=== PATIENT | female | born 1950 | race Caucasian/White ===

== ENCOUNTER 2019-07-22 09:30 | Day surgery (SDC) | payer OTHER, MEDICARE, MEDICAID ==
[~2019-07-22 09:30] MED LIST: Cefuroxime 10 MG/ML SYRINGE EYELF SCH; Lidocaine 1% PF 2 ML SDV INJECT SCH; Pilocarpine 4% Ophth Soln 15 ML Bot EYELF SCH
[2019-07-22] MEDS: Polymyxin B/Trimethoprim 10 ML Bottle EYELF SCH ×3 (10:19→12:08)
[2019-07-22] MEDS: Brimonidine 0.2% Ophth Soln 5 ML Bottle EYELF SCH ×3 (10:25→12:08)
[2019-07-22] MEDS: Phenylephrine 2.5% Ophth Soln 2 ML Bot EYELF SCH ×5 (10:30→11:51)
[2019-07-22] MEDS: Tropicamide 1% Ophth Soln 15 ML Bottle EYELF SCH ×4 (10:33→11:15)
--- NOTE | 2019-07-22 10:35 | PCM.PREANE ---
Preanesthetic Assessment - Anesthesia/Transfusion/Family Hx Anesthesia History: No Prior Anesthesia Family History of Anesthesia Reaction: No Transfusion History: No Prior Transfusion(s) - Review of Systems General: No Symptoms Pulmonary: No Symptoms Cardiovascular: Other (HTN) Gastrointestinal: No Symptoms Neurological: No Symptoms Other: Reports: Anxiety - Physical Assessment NPO Status Date: 07/21/19 NPO Status Time: 18:00 Vital Signs: Last Vital Signs Temp 36.5 C 07/22/19 10:10 Pulse 76 07/22/19 10:10 Resp 16 07/22/19 10:10 BP 150/77 H 07/22/19 10:10 Pulse Ox 98 07/22/19 10:10 Height: 1.57 m Weight: 58.513 kg ASA Class: 2 Mental Status: Alert & Oriented x3 Airway Class: Mallampati = 2 Dentition: Reports: Dentures, Edentulous Thyro-Mental Finger Breadths: 3 Mouth Opening Finger Breadths: 3 ROM/Head Extension: Full Lungs: Clear to Auscultation, Normal Respiratory Effort Cardiovascular: Regular Rate, Regular Rhythm - Allergies Allergies/Adverse Reactions: Allergies Allergy/AdvReac Type Severity Reaction Status Date / Time penicillin G AdvReac bruising Verified 07/21/19 14:06 - Blood Blood Available: No Product(s) Available: None - Anesthesia Plan Pre-Op Medication Ordered: None - Acknowledgements Anesthesia Type Planned: MAC Pt an Appropriate Candidate for the Planned Anesthesia: Yes Alternatives and Risks of Anesthesia Discussed w Pt/Guardian: Yes Pt/Guardian Understands and Agrees with Anesthesia Plan: Yes PreAnesthesia Questionnaire - HOME MEDS Home Medications: Home Meds . [Unable to Verify Home Med List] 07/21/19 [History] - CURRENT (IN HOUSE) MEDS Current Meds: Current Medications Brimonidine Tartrate (Alphagan 0.2% Ophth Soln) 0 ml EYELF ASDIRECTED FABY Stop: 07/22/19 23:00 Last Admin: 07/22/19 10:25 Dose: 1 drop Cefuroxime Sodium (Zinacef) 0 mg EYELF ASDIRECTED FABY Stop: 07/22/19 23:00 Lidocaine HCl (Xylocaine-Mpf 1%) 1 ml INJECT ASDIRECTED FABY Stop: 07/22/19 23:00 Phenylephrine HCl (Alex-Synephrine 2.5% Ophth Soln) 0 ml EYELF ASDIRECTED FABY Stop: 07/22/19 23:00 Pilocarpine HCl (Pilocar 4% Ophth Soln) 0 ml EYELF ASDIRECTED FABY Stop: 07/22/19 23:00 Polymyxin/Trimethoprim Sulfate (Polytrim Ophth Soln) 0 ml EYELF ASDIRECTED FABY Stop: 07/22/19 23:00 Last Admin: 07/22/19 10:19 Dose: 1 drop Tetracaine HCl (Tetracaine 0.5% Steri-Unit Giuliana) 0 ml EYELF ASDIRECTED FABY Stop: 07/22/19 23:00 Tropicamide (Mydriacyl 1% Ophth Soln) 0 ml EYELF ASDIRECTED FABY Stop: 07/22/19 23:00
[2019-07-22] MEDS: Tetracaine HCl/PF 0.5% 4 ML Bottle EYELF SCH ×2 (11:36→11:57)
--- NOTE | 2019-07-22 12:13 | PCM48HPAN ---
Post Anesthesia Note - EVALUATION WITHIN 48HRS OF ANESTHETIC Vital Signs in Normal Range: Yes Patient Participated in Evaluation: Yes Respiratory Function Stable: Yes Airway Patent: Yes Cardiovascular Function Stable: Yes Hydration Status Stable: Yes Pain Control Satisfactory: Yes Nausea and Vomiting Control Satisfactory: Yes Mental Status Recovered: Yes Vital Signs: Last Vital Signs Temp 36.5 C 07/22/19 10:10 Pulse 76 07/22/19 10:10 Resp 16 07/22/19 10:10 BP 150/77 H 07/22/19 10:10 Pulse Ox 98 07/22/19 10:10
== END 2019-07-22 12:20 | disposition home or self-care (01) ==
LOC: JD.SDS 09:30
PROVIDERS: ATTEND Ophthalmology
DX: H25.813 Combined forms of age-related cataract, bilateral (principal); H18.51 Endothelial corneal dystrophy; H35.373 Puckering of macula, bilateral; H35.363 Drusen (degenerative) of macula, bilateral; H35.3131 Nonexudative age-related macular degeneration, bilateral, early dry stage; H43.813 Vitreous degeneration, bilateral; H35.033 Hypertensive retinopathy, bilateral; H16.103 Unspecified superficial keratitis, bilateral; H16.223 Keratoconjunctivitis sicca, not specified as Sjogren's, bilateral; H02.834 Dermatochalasis of left upper eyelid; H02.831 Dermatochalasis of right upper eyelid; I10 Essential (primary) hypertension; F41.9 Anxiety disorder, unspecified; Z79.899 Other long term (current) drug therapy; Z88.0 Allergy status to penicillin
CPT/HCPCS: 66984; J0697; J2001; C1780

== ENCOUNTER 2019-08-19 07:54 | Day surgery (SDC) | payer OTHER, MEDICARE, MEDICAID ==
[2019-08-19] MEDS: Polymyxin B/Trimethoprim 10 ML Bottle EYERT SCH ×4 (08:34→11:00)
[2019-08-19] MEDS: Brimonidine 0.2% Ophth Soln 5 ML Bottle EYERT SCH ×4 (08:40→11:00)
--- NOTE | 2019-08-19 08:51 | PCM.PREANE ---
Preanesthetic Assessment - Procedure Proposed Procedure: cataract right - Anesthesia/Transfusion/Family Hx Anesthesia History: No Prior Anesthesia Family History of Anesthesia Reaction: No Transfusion History: No Prior Transfusion(s) - Review of Systems General: No Symptoms Pulmonary: No Symptoms Cardiovascular: No Symptoms Gastrointestinal: No Symptoms Neurological: No Symptoms Other: Reports: Anxiety - Physical Assessment NPO Status Date: 08/18/19 NPO Status Time: 19:00 Vital Signs: Last Vital Signs Temp 97.8 F 08/19/19 08:00 Pulse 75 08/19/19 08:00 Resp 16 08/19/19 08:00 BP 145/74 H 08/19/19 08:00 Pulse Ox 100 08/19/19 08:00 Height: 5 ft 1 in Weight: 54.431 kg ASA Class: 2 Mental Status: Alert & Oriented x3 Airway Class: Mallampati = 2 Dentition: Reports: Dentures (top and bottom) Thyro-Mental Finger Breadths: 3 Mouth Opening Finger Breadths: 3 ROM/Head Extension: Full Lungs: Clear to Auscultation, Normal Respiratory Effort Cardiovascular: Regular Rate, Regular Rhythm - Allergies Allergies/Adverse Reactions: Allergies Allergy/AdvReac Type Severity Reaction Status Date / Time penicillin G AdvReac bruising Verified 08/18/19 11:10 - Blood Blood Available: No - Acknowledgements Anesthesia Type Planned: MAC Pt an Appropriate Candidate for the Planned Anesthesia: Yes Alternatives and Risks of Anesthesia Discussed w Pt/Guardian: Yes Pt/Guardian Understands and Agrees with Anesthesia Plan: Yes PreAnesthesia Questionnaire Cardiovascular History: Reports: Hypertension Respiratory History: Reports: None Gastrointestinal History: Reports: GERD Psychiatric History: Reports: Anxiety Oncologic (Cancer) History: Reports: None - SUBSTANCE USE Smoking Status *Q: Never Smoker Tobacco Use Within Last Twelve Months: No Second Hand Smoke Exposure: No Days Per Week of Alcohol Use: 1 Recreational Drug Use History: No - HOME MEDS Home Medications: Home Meds Ascorbic Acid [Vitamin C] 08/18/19 [History] Calcium Carb, Citrate/Vit D3 [Calcium + D3 ER Tablet] 08/18/19 [History] Ferrous Sulfate [Slow Fe] 08/18/19 [History] Folic Acid 08/18/19 [History] Mecobalamin [B12 Active] 08/18/19 [History] Mirtazapine 08/18/19 [History] Multivitamins [Tab-A-Luis] 08/18/19 [History] - CURRENT (IN HOUSE) MEDS Current Meds: Current Medications Brimonidine Tartrate (Alphagan 0.2% Ophth Soln) 0 ml EYERT ASDIRECTED FABY Stop: 08/19/19 18:00 Last Admin: 08/19/19 08:40 Dose: 1 drop Cefuroxime Sodium (Zinacef) 0 mg EYERT ASDIRECTED FABY Stop: 08/19/19 18:00 Lidocaine HCl (Xylocaine-Mpf 1%) 0 ml INJECT ASDIRECTED FABY Stop: 08/19/19 18:00 Phenylephrine HCl (Alex-Synephrine 2.5% Ophth Soln) 0 ml EYERT ASDIRECTED FABY Stop: 08/19/19 18:00 Pilocarpine HCl (Pilocar 4% Ophth Soln) 0 ml EYERT ASDIRECTED FABY Stop: 08/19/19 18:00 Polymyxin/Trimethoprim Sulfate (Polytrim Ophth Soln) 0 ml EYERT ASDIRECTED FABY Stop: 08/19/19 18:00 Last Admin: 08/19/19 08:34 Dose: 1 drop Tetracaine HCl (Tetracaine 0.5% Steri-Unit Giuliana) 0 ml EYEBOTH ASDIRECTED FABY Stop: 08/19/19 18:00 Tropicamide (Mydriacyl 1% Ophth Soln) 0 ml EYERT ASDIRECTED FABY Stop: 08/19/19 18:00
[2019-08-19] MEDS: Phenylephrine 2.5% Ophth Soln 2 ML Bot EYERT SCH ×6 (08:55→10:44)
[2019-08-19] MEDS: Tropicamide 1% Ophth Soln 15 ML Bottle EYERT SCH ×4 (09:01→10:10)
[2019-08-19] MEDS: Tetracaine HCl/PF 0.5% 4 ML Bottle EYEBOTH SCH ×5 (10:00→10:48)
[2019-08-19] MEDS: Lidocaine 1% PF 2 ML SDV INJECT SCH ×2 (10:00→10:48)
[2019-08-19] MEDS: Pilocarpine 4% Ophth Soln 15 ML Bot EYERT SCH ×2 (10:01→11:00)
[2019-08-19] MEDS: Cefuroxime 10 MG/ML SYRINGE EYERT SCH ×2 (10:01→11:00)
--- NOTE | 2019-08-19 10:53 | PCM48HPAN ---
Post Anesthesia Note - EVALUATION WITHIN 48HRS OF ANESTHETIC Vital Signs in Normal Range: Yes Patient Participated in Evaluation: Yes Respiratory Function Stable: Yes Airway Patent: Yes Cardiovascular Function Stable: Yes Hydration Status Stable: Yes Pain Control Satisfactory: Yes Nausea and Vomiting Control Satisfactory: Yes Mental Status Recovered: Yes Vital Signs: Last Vital Signs Temp 36.6 C 08/19/19 08:00 Pulse 75 08/19/19 08:00 Resp 16 08/19/19 08:00 BP 145/74 H 08/19/19 08:00 Pulse Ox 100 08/19/19 08:00
== END 2019-08-19 11:15 | disposition home or self-care (01) ==
LOC: JD.SDS 07:54
PROVIDERS: ATTEND Ophthalmology
DX: H25.811 Combined forms of age-related cataract, right eye (principal); H35.363 Drusen (degenerative) of macula, bilateral; H35.3131 Nonexudative age-related macular degeneration, bilateral, early dry stage; H43.813 Vitreous degeneration, bilateral; H02.834 Dermatochalasis of left upper eyelid; H02.831 Dermatochalasis of right upper eyelid; H18.51 Endothelial corneal dystrophy; H35.033 Hypertensive retinopathy, bilateral; F41.9 Anxiety disorder, unspecified; I10 Essential (primary) hypertension; Z98.42 Cataract extraction status, left eye; Z88.0 Allergy status to penicillin; Z96.1 Presence of intraocular lens; Z79.899 Other long term (current) drug therapy
CPT/HCPCS: 66984; C1780; J0697; J2001

== ENCOUNTER 2022-07-30 15:08 | Emergency (ER) | payer OTHER, MEDICAID, MEDICARE ==
[2022-07-30] MEDS ORDERED: Sodium Chloride 0.9% 10 ML Syringe FLUSH PRN (16:13)
[2022-07-30 18:15] LABS: CORONAVIRUS COVID-19 NAA NEGATIVE (NEGATIVE)
== END 2022-07-30 18:45 | disposition home or self-care (01) ==
LOC: JD.ED 15:08
DX: F41.9 Anxiety disorder, unspecified (principal); I11.9 Hypertensive heart disease without heart failure; Z88.0 Allergy status to penicillin; Z79.899 Other long term (current) drug therapy; Z20.822 Contact with and (suspected) exposure to COVID-19
CPT/HCPCS: 0240U; 36415; 70450; 80053; 81001; 84443; 85025; 99284